=== PATIENT | female | born 1940 | race Caucasian/White ===

== ENCOUNTER 2016-10-25 21:03 | Inpatient (IN) | payer MEDICARE ==
[~2016-10-25] VITALS: Ht 162.5 cm; Wt 120.9 kg
--- NOTE | ~2016-10-25 | O ---
[place], [place] OPERATIVE NOTE NAME: JACKELYN FONTANEZ UNIT #: [id number] ROOM: [facility] DOCTOR: MARKUS DANIELYANCY BIRTHDATE: [birth year] DOS: 10/27/2016 INDICATIONS: The patient is 76 years old who has presented with chief complaint of lower GI bleed with a hemoglobin of 7 to the Emergency Room and continued to have rectal bleed. The patient has been on Xarelto. Xarelto has been placed on hold. Followup H and H's has been ordered. PAST MEDICAL HISTORY: Degenerative joint disease, asthma, essential hypertension, gastroesophageal reflux, CVA, history of benign breast cyst, atrial fibrillation, anemia, TIA. PAST SURGICAL HISTORY: Tonsillectomy, hysterectomy, rotator cuff repair, appendectomy, tubal ligation, tonsillectomy, and retina tear. SOCIAL HISTORY: Nonsmoker, nonalcohol consumer. FAMILY HISTORY: Noncontributory. ALLERGIES: MEPERIDINE, CIPROFLOXACIN, HYDROCODONE, AND PERCOCET. MEDICATIONS: List has been reviewed. The patient has been on omeprazole and iron supplementation. PROCEDURE: Today's procedure part of investigation is colonoscopy. PREMEDICATION: Versed and Diprivan. SCOPE: Olympus forward viewing colonoscope 10L video. REPORT: After putting the patient in the left lateral position and after application of lubricant to rectal pouch and digital examination, scope was introduced. Thereafter, under direct visualization, advanced through the length of colon without difficulty. Base of the cecum explored, appendiceal orifice identified, ileocecal valve was defined. Redundancy and tortuosity of the colon all along was experienced, specifically at sigmoid and splenic and hepatic flexure. Ileocecal valve was photographed. The scope was gradually withdrawn from ascending, transverse, descending colon. The patient extubated after GI reflection of the scope in the rectum, which revealed small hemorrhoids. IMPRESSION: Redundant colon, tortuosity of colon, small hemorrhoid. This could have been bleeding under the effect of the stool trauma in addition to Xarelto being full dose on board. PLAN AND DISCUSSION: We are going to feed her regular diet and clinically reassess. Thank you very much indeed. [place], [place] OPERATIVE NOTE NAME: JACKELYN FONTANEZ UNIT #: [id number] ROOM: 506 DOCTOR: YANCY APARICIO MD BIRTHDATE: [birth year] YANCY APARICIO MD CM:OPRECORD:OPERATIVE NOTE [id number] YANCY APARICIO MD 10/27/16 1629 interface
[~2016-10-25 21:03] MED LIST: ADVAIR 250/501 EA INH; ADVIL200 MG PO; AEROSOL THERAPY1 DEV; ALBUTEROL 3 ML 33 ML INH; ASPIRIN81 M1 PO; ATENOLOL50 M1 PO; ATIVAN0.5 MG PO; BENADRYL ALLERG25 M5 PO; BYSTOLIC5 MG PO; CITALOPRAM10 MG PO; CITALOPRAM20 MG PO; CITALOPRAM40 MG PO; COMBIVENT1 AR1 IH; COZAAR100 MG PO; DELTASONE10 MG PO; DOXYCYCLINE100 M3 PO; FUROSEMIDE20 M1 PO; LASIX40 MG PO; LOSARTAN; OMEPRAZOLE D/R20 MG PO; OMEPRAZOLE DR20 M1 PO; POTASSIUM CHLO20 MEQ PO; POTASSIUM20 MEQ PO; PREDNISONE10 MG PO; PRILOSEC20 M2 PO; SIMVASTATIN40 MG PO; TOPROL XL50 M1 PO; TRAZODONE50 MG PO; TYLENOL325 M1 PO; XARE20MG PO
[2016-10-25 21:09] VITALS: BP 168/78
[2016-10-25] MEDS ORDERED: IRON325 M2 PO (21:16)
[2016-10-25] MEDS ORDERED: OXYGEN NAS (21:17)
[2016-10-25] MEDS ORDERED: IMDUR SA30 MG PO (21:17)
[2016-10-25 21:39] VITALS: BP 126/55
[2016-10-25 22:03] VITALS: BP 126/55
[2016-10-25 22:18] LABS: BASO # 0.1 10*3/uL (0.0-0.1); BASO % 0.5 % (0.0-1.0); EOS # 0.4 10*3/uL (0.0-0.4); EOS % 3.3 % (1.0-4.0); HEMOGLOBIN 7.4 g/dl (12.0-16.0); LYMPH # 1.9 10*3/uL (1.3-4.4); LYMPH % 14.6 % (27.0-41.0); MEAN CELL VOLUME 86.3 fl (81.0-99.0); MEAN CORPUSCULAR HGB 26.6 pg (27.0-31.0); MEAN CORPUSCULAR HGB CONC 30.8 g/dl (33.0-37.0); MEAN PLATELET VOLUME 9.5 fl (9.6-12.3); MONO % 7.2 % (3.0-9.0); NEUT # 9.8 10*3/uL (2.3-7.9); NEUT % 74.1 % (47.0-73.0); PLATELET COUNT AUTOMATED 382 10*3/uL (130-400); RED BLOOD COUNT 2.78 10*6/uL (4.10-5.10); WHITE BLOOD COUNT 13.2 10*3/uL (4.8-10.8)
[2016-10-25 22:28] LABS: INTERNATIONAL NORM RATIO 1.4 (2.0-3.5); PROTHROMBIN TIME 14.8 SECONDS (9.0-12.4)
[2016-10-25 22:36] LABS: ALBUMIN 3.2 gm/dl (3.1-4.5); ALKALINE PHOSPHATASE 81 U/L (45-117); BILIRUBIN, TOTAL 0.7 mg/dl (0.2-1.0); BUN 17 mg/dl (7-24); CARBON DIOXIDE 24 mmol/L (21-32); CHLORIDE 106 mmol/L (98-107); CPK 118 U/L (26-192); EST GLOM FILT AFRICAN AMERICAN > 60 ml/min; GLUCOSE 90 mg/dL (65-99); LDH 262 U/L (84-246); POTASSIUM 3.8 mmol/L (3.5-5.1); SGOT/AST 18 IU/L (3-35); SGPT/ALT 20 U/L (12-78); SODIUM 143 mmol/L (136-145); TOTAL PROTEIN 7.3 gm/dL (6.4-8.2)
[2016-10-25 22:37] LABS: CKMB 1.2 ng/ml (0.5-3.6)
[2016-10-25 22:40] LABS: TROPONIN I < 0.015 ng/ml (<0.045)
[2016-10-25 23:00] VITALS: BP 153/73
[2016-10-26 00:13] VITALS: BP 141/54
[2016-10-26] MEDS ORDERED: LASIX40 MG PO (01:01)
[2016-10-26] MEDS ORDERED: TYLENOL80 MG PO (01:02)
[2016-10-26] MEDS ORDERED: VITAMIN D3400 UNI1 PO (01:03)
[2016-10-26 05:54] LABS: BASO # 0.1 10*3/uL (0.0-0.1); BASO % 0.6 % (0.0-1.0); EOS # 0.4 10*3/uL (0.0-0.4); EOS % 3.1 % (1.0-4.0); HEMATOCRIT 27.9 % (37.0-47.0); HEMOGLOBIN 8.7 g/dl (12.0-16.0); IG # 0.1 10*3/uL (0.0-0.1); LYMPH # 1.9 10*3/uL (1.3-4.4); LYMPH % 15.1 % (27.0-41.0); MEAN CELL VOLUME 86.4 fl (81.0-99.0); MEAN CORPUSCULAR HGB 26.9 pg (27.0-31.0); MEAN CORPUSCULAR HGB CONC 31.2 g/dl (33.0-37.0); MEAN PLATELET VOLUME 9.5 fl (9.6-12.3); MONO % 7.6 % (3.0-9.0); NEUT # 9.1 10*3/uL (2.3-7.9); NEUT % 73.2 % (47.0-73.0); PLATELET COUNT AUTOMATED 393 10*3/uL (130-400); RED BLOOD COUNT 3.23 10*6/uL (4.10-5.10); RED CELL DISTRI WIDTH 14.9 % (0-14.5); WHITE BLOOD COUNT 12.4 10*3/uL (4.8-10.8)
[2016-10-26 06:08] LABS: BUN 15 mg/dl (7-24); CARBON DIOXIDE 24 mmol/L (21-32); CHLORIDE 106 mmol/L (98-107); CHOLESTEROL 120 mg/dL (<200); EST GLOM FILT AFRICAN AMERICAN > 60 ml/min; FREE T4 1.27 ng/dl (0.76-1.46); GLUCOSE 105 mg/dL (65-99); HDL CHOLESTEROL 44 mg/dl (40-60); LDL CHOLESTEROL 62 mg/dL (9-159); POTASSIUM 3.9 mmol/L (3.5-5.1); SODIUM 141 mmol/L (136-145); TRIGLYCERIDES 72 mg/dl (<150); VLDL CHOLESTEROL 14 mg/dL (6-40)
[2016-10-26 06:16] LABS: INTERNATIONAL NORM RATIO 1.2 (2.0-3.5); PROTHROMBIN TIME 12.8 SECONDS (9.0-12.4)
[2016-10-26 06:17] LABS: FOLIC ACID 20.9 ng/mL (>5.38)
[2016-10-26 08:00] VITALS: BP 114/90
[2016-10-26 09:57] VITALS: BP 138/50
[2016-10-26 12:00] VITALS: BP 132/44
[2016-10-26 16:00] VITALS: BP 142/58
[2016-10-26 20:00] VITALS: BP 133/85
[2016-10-27] VITALS (7 sets, daily range): BP systolic 133–170; BP diastolic 47–90
[2016-10-27 06:29] LABS: BASO # 0.1 10*3/uL (0.0-0.1); BASO % 0.5 % (0.0-1.0); EOS # 0.4 10*3/uL (0.0-0.4); HEMATOCRIT 25.8 % (37.0-47.0); HEMOGLOBIN 8.2 g/dl (12.0-16.0); IG # 0.1 10*3/uL (0.0-0.1); LYMPH # 1.5 10*3/uL (1.3-4.4); LYMPH % 13.5 % (27.0-41.0); MEAN CELL VOLUME 86.6 fl (81.0-99.0); MEAN CORPUSCULAR HGB 27.5 pg (27.0-31.0); MEAN CORPUSCULAR HGB CONC 31.8 g/dl (33.0-37.0); MEAN PLATELET VOLUME 9.1 fl (9.6-12.3); MONO # 0.9 10*3/uL (0.1-1.0); MONO % 7.9 % (3.0-9.0); NEUT # 8.1 10*3/uL (2.3-7.9); NEUT % 73.6 % (47.0-73.0); PLATELET COUNT AUTOMATED 328 10*3/uL (130-400); RED BLOOD COUNT 2.98 10*6/uL (4.10-5.10); RED CELL DISTRI WIDTH 15.1 % (0-14.5)
[2016-10-27 06:45] LABS: BUN 9 mg/dl (7-24); CARBON DIOXIDE 26 mmol/L (21-32); CHLORIDE 106 mmol/L (98-107); EST GLOM FILT AFRICAN AMERICAN > 60 ml/min; GLUCOSE 101 mg/dL (65-99); POTASSIUM 3.5 mmol/L (3.5-5.1); SODIUM 142 mmol/L (136-145)
[2016-10-27] MEDS ORDERED: COUMADIN5 M2 PO (16:15)
== END 2016-10-27 19:30 | disposition home or self-care (01) | DRG 377 ==
LOC: ED 21:03 → EDHOLD 23:23 → 5E 23:23
PROVIDERS: Internal Medicine; Internal Medicine Hospice and Palliative Medicine; Physician Assistant
PROC: 30233N1 Transfusion of Nonautologous Red Blood Cells into Peripheral Vein, Percutaneous Approach (ICD-10-PCS; 2016-10-26)
PROC: 0DJD8ZZ Inspection of Lower Intestinal Tract, Via Natural or Artificial Opening Endoscopic (ICD-10-PCS; principal; 2016-10-27)
DX: K92.2 Gastrointestinal hemorrhage, unspecified (principal); I50.33 Acute on chronic diastolic (congestive) heart failure; E44.0 Moderate protein-calorie malnutrition; D68.59 Other primary thrombophilia; I48.2 Chronic atrial fibrillation; Z99.81 Dependence on supplemental oxygen; Z68.42 Body mass index [BMI] 45.0-49.9, adult; I10 Essential (primary) hypertension; E78.5 Hyperlipidemia, unspecified; K64.8 Other hemorrhoids; D64.9 Anemia, unspecified; J45.909 Unspecified asthma, uncomplicated; Z79.01 Long term (current) use of anticoagulants; K21.9 Gastro-esophageal reflux disease without esophagitis; Z86.73 Personal history of transient ischemic attack (TIA), and cerebral infarction without residual deficits; Z88.1 Allergy status to other antibiotic agents; Z88.5 Allergy status to narcotic agent; D72.829 Elevated white blood cell count, unspecified; Z82.41 Family history of sudden cardiac death; M19.90 Unspecified osteoarthritis, unspecified site

== ENCOUNTER → 2018-03-08 | Outpatient (CLI) | payer MEDICARE ==
[~2018-03-08] MED LIST changes: +COUMADIN5 M2 PO; +IMDUR SA30 MG PO; +IRON325 M2 PO; +OXYGEN NAS; +TYLENOL80 MG PO; +VITAMIN D3400 UNI1 PO
== END | disposition home or self-care (01) ==
LOC: RESCLI 08:10
DX: I11.0 Hypertensive heart disease with heart failure (principal); I50.9 Heart failure, unspecified; I25.10 Atherosclerotic heart disease of native coronary artery without angina pectoris; I48.2 Chronic atrial fibrillation; K21.9 Gastro-esophageal reflux disease without esophagitis; E78.5 Hyperlipidemia, unspecified; K59.00 Constipation, unspecified; J45.20 Mild intermittent asthma, uncomplicated; F41.9 Anxiety disorder, unspecified; G47.30 Sleep apnea, unspecified; Z90.710 Acquired absence of both cervix and uterus; Z88.8 Allergy status to other drugs, medicaments and biological substances

== ENCOUNTER 2018-05-16 08:04 | Emergency (ER) | payer MEDICARE ==
[~2018-05-16] VITALS: Wt 117.9 kg
[2018-05-16] MEDS ORDERED: XARE20MG PO (08:17)
[2018-05-16] MEDS ORDERED: CITALOPRAM20 MG PO (08:18)
[2018-05-16] MEDS ORDERED: STOOL SOFTENER240 M2 PO (08:20)
== END 2018-05-16 09:59 | disposition home or self-care (01) ==
LOC: ED 08:04
DX: M25.531 Pain in right wrist (principal); Z88.1 Allergy status to other antibiotic agents; Z88.6 Allergy status to analgesic agent; Z88.8 Allergy status to other drugs, medicaments and biological substances; Z79.899 Other long term (current) drug therapy; Z90.710 Acquired absence of both cervix and uterus

== ENCOUNTER → 2018-05-17 | Outpatient (CLI) | payer MEDICARE ==
[~2018-05-17] MED LIST changes: +STOOL SOFTENER240 M2 PO
== END | disposition home or self-care (01) ==
LOC: RESCLI 04:25
DX: I48.2 Chronic atrial fibrillation (principal); E78.5 Hyperlipidemia, unspecified; I11.0 Hypertensive heart disease with heart failure; I50.9 Heart failure, unspecified; K21.9 Gastro-esophageal reflux disease without esophagitis; F41.9 Anxiety disorder, unspecified; I25.10 Atherosclerotic heart disease of native coronary artery without angina pectoris; K59.00 Constipation, unspecified; G47.30 Sleep apnea, unspecified; J45.20 Mild intermittent asthma, uncomplicated; E66.01 Morbid (severe) obesity due to excess calories; S63.501D Unspecified sprain of right wrist, subsequent encounter; X58.XXXD Exposure to other specified factors, subsequent encounter; Z79.899 Other long term (current) drug therapy; Z88.8 Allergy status to other drugs, medicaments and biological substances

== ENCOUNTER → 2018-08-08 | Outpatient (CLI) | payer MEDICARE ==
[2018-08-08 13:04] LABS: BASO # 0.1 10*3/uL (0.0-0.1); EOS # 0.4 10*3/uL (0.0-0.4); EOS % 5.6 % (1.0-4.0); HEMATOCRIT 44.9 % (37.0-47.0); LYMPH # 1.2 10*3/uL (1.3-4.4); LYMPH % 16.8 % (27.0-41.0); MEAN CELL VOLUME 92.8 fl (81.0-99.0); MEAN CORPUSCULAR HGB CONC 33.4 g/dl (33.0-37.0); MEAN PLATELET VOLUME 9.7 fl (9.6-12.3); MONO # 0.9 10*3/uL (0.1-1.0); MONO % 12.6 % (3.0-9.0); NEUT # 4.5 10*3/uL (2.3-7.9); NEUT % 63.7 % (47.0-73.0); PLATELET COUNT AUTOMATED 264 10*3/uL (130-400); RED BLOOD COUNT 4.84 10*6/uL (4.10-5.10); RED CELL DISTRI WIDTH 14.2 % (0-14.5); WHITE BLOOD COUNT 7.1 10*3/uL (4.8-10.8)
[2018-08-08 13:40] LABS: ALBUMIN 3.5 gm/dl (3.1-4.5); BUN 13 mg/dl (7-24); CHLORIDE 106 mmol/L (98-107); CREATININE 0.81 mg/dL (0.55-1.02); POTASSIUM 3.9 mmol/L (3.5-5.1); SGOT/AST 38 IU/L (3-35); SGPT/ALT 29 U/L (12-78); SODIUM 141 mmol/L (136-145)
[2018-08-08 13:43] LABS: ALKALINE PHOSPHATASE 79 U/L (45-117); TOTAL PROTEIN 8.3 gm/dL (6.4-8.2)
== END | disposition home or self-care (01) ==
LOC: RESCLI 11:19 → LAB 11:19
PROVIDERS: Internal Medicine
DX: J45.20 Mild intermittent asthma, uncomplicated (principal); I11.0 Hypertensive heart disease with heart failure; I50.9 Heart failure, unspecified; I48.2 Chronic atrial fibrillation; E78.5 Hyperlipidemia, unspecified; K21.9 Gastro-esophageal reflux disease without esophagitis; I25.10 Atherosclerotic heart disease of native coronary artery without angina pectoris; K59.00 Constipation, unspecified; F41.9 Anxiety disorder, unspecified; G47.30 Sleep apnea, unspecified; Z79.899 Other long term (current) drug therapy; Z90.49 Acquired absence of other specified parts of digestive tract; Z88.1 Allergy status to other antibiotic agents

== ENCOUNTER → 2018-08-11 | Outpatient (CLI) | payer MEDICARE ==
[2018-08-12 05:09] LABS: TOTAL PROTEIN, SERUM 6.9 g/dL (6.0-8.5)
[2018-08-12 09:12] LABS: IMMUNOGLOBULIN G, QNT 1250 mg/dL (700-1600); IMMUNOGLOBULIN M, QNT 85 mg/dL (26-217)
[2018-08-14 14:10] LABS: A/G RATIO 0.9 (0.7-1.7); ALBUMIN 3.2 g/dL (2.9-4.4); ALPHA-1-GLOBULIN 0.2 g/dL (0.0-0.4); ALPHA-2-GLOBULIN 0.9 g/dL (0.4-1.0); BETA GLOBULIN 1.2 g/dL (0.7-1.3); GAMMA GLOBULIN 1.3 g/dL (0.4-1.8); GLOBULIN, TOTAL 3.7 g/dL (2.2-3.9); M-SPIKE 0.4 g/dL (Not Observed)
== END | disposition home or self-care (01) ==
LOC: RESCLI 04:39
PROVIDERS: Internal Medicine
DX: I48.2 Chronic atrial fibrillation (principal); I11.0 Hypertensive heart disease with heart failure; I50.9 Heart failure, unspecified; J45.20 Mild intermittent asthma, uncomplicated; E78.5 Hyperlipidemia, unspecified; K21.9 Gastro-esophageal reflux disease without esophagitis; I25.10 Atherosclerotic heart disease of native coronary artery without angina pectoris; K59.00 Constipation, unspecified; F41.9 Anxiety disorder, unspecified; G47.30 Sleep apnea, unspecified; Z88.8 Allergy status to other drugs, medicaments and biological substances; Z79.899 Other long term (current) drug therapy

== ENCOUNTER → 2018-09-06 | Outpatient (CLI) | payer MEDICARE | END | disposition home or self-care (01) | LOC: RESCLI 00:26 | DX: I11.0 Hypertensive heart disease with heart failure (principal); I50.9 Heart failure, unspecified; D47.2 Monoclonal gammopathy; R94.5 Abnormal results of liver function studies; I48.2 Chronic atrial fibrillation; J45.20 Mild intermittent asthma, uncomplicated; E78.5 Hyperlipidemia, unspecified; K21.9 Gastro-esophageal reflux disease without esophagitis; I25.10 Atherosclerotic heart disease of native coronary artery without angina pectoris; K59.00 Constipation, unspecified; F41.9 Anxiety disorder, unspecified; F32.1 Major depressive disorder, single episode, moderate; E66.01 Morbid (severe) obesity due to excess calories; Z79.899 Other long term (current) drug therapy; Z88.8 Allergy status to other drugs, medicaments and biological substances ==

== ENCOUNTER → 2018-12-15 | Outpatient (CLI) | payer MEDICARE | END | disposition home or self-care (01) | LOC: RESCLI 01:30 | DX: G47.30 Sleep apnea, unspecified (principal); E78.5 Hyperlipidemia, unspecified; I25.10 Atherosclerotic heart disease of native coronary artery without angina pectoris; K59.00 Constipation, unspecified; F41.9 Anxiety disorder, unspecified; F32.1 Major depressive disorder, single episode, moderate; I48.2 Chronic atrial fibrillation; I11.0 Hypertensive heart disease with heart failure; I50.9 Heart failure, unspecified; K21.9 Gastro-esophageal reflux disease without esophagitis; D47.2 Monoclonal gammopathy; R60.9 Edema, unspecified; N17.9 Acute kidney failure, unspecified; Z79.899 Other long term (current) drug therapy ==

== ENCOUNTER → 2019-01-04 | Outpatient (CLI) | payer MEDICARE ==
[2019-01-04 12:41] LABS: ALBUMIN 3.6 gm/dl (3.1-4.5); ALKALINE PHOSPHATASE 95 U/L (45-117); BUN 25 mg/dl (7-24); CHLORIDE 103 mmol/L (98-107); CREATININE 1.07 mg/dL (0.55-1.02); POTASSIUM 3.6 mmol/L (3.5-5.1); SGOT/AST 16 IU/L (3-35); SGPT/ALT 19 U/L (12-78); SODIUM 139 mmol/L (136-145); TOTAL PROTEIN 8.2 gm/dL (6.4-8.2)
[2019-01-05 16:09] LABS: FREE KAPPA LIGHT CHAINS 27.1 mg/L (3.3-19.4); FREE LAMBDA LIGHT CHAINS 23.8 mg/L (5.7-26.3); KAPPA/LAMBDA RATIO 1.14 (0.26-1.65)
[2019-01-10 15:09] LABS: ALPHA-1-GLOBULIN, URINE 2.2 % (.); ALPHA-2-GLOBULIN, URINE 13.3 % (.); BETA GLOBULIN, URINE 38.1 % (.); GAMMA GLOBULIN, URINE 19.3 % (.); M-SPIKE, % Not Observed % (Not Observed); PROTEIN,TOTAL - URINE RANDOM 6.1 mg/dL (Not Estab.)
== END | disposition home or self-care (01) ==
LOC: LAB 01:34
PROVIDERS: Internal Medicine
DX: I50.9 Heart failure, unspecified (principal); D47.2 Monoclonal gammopathy; R94.5 Abnormal results of liver function studies

== ENCOUNTER → 2019-04-27 | Outpatient (CLI) | payer MEDICARE ==
[2019-04-27 09:33] LABS: ALBUMIN 3.5 gm/dl (3.1-4.5); ALKALINE PHOSPHATASE 80 U/L (45-117); BUN 21 mg/dl (7-24); CHLORIDE 101 mmol/L (98-107); CREATININE 1.04 mg/dL (0.55-1.02); POTASSIUM 3.1 mmol/L (3.5-5.1); SGOT/AST 15 IU/L (3-35); SGPT/ALT 16 U/L (12-78); SODIUM 136 mmol/L (136-145); TOTAL PROTEIN 8.3 gm/dL (6.4-8.2)
[2019-04-28 21:05] LABS: FREE KAPPA LIGHT CHAINS 36.5 mg/L (3.3-19.4); FREE LAMBDA LIGHT CHAINS 27.8 mg/L (5.7-26.3); KAPPA/LAMBDA RATIO 1.31 (0.26-1.65)
[2019-05-01 14:11] LABS: ALBUMIN, URINE 20.9 % (.); ALPHA-1-GLOBULIN, URINE 7.1 % (.); ALPHA-2-GLOBULIN, URINE 26.3 % (.); BETA GLOBULIN, URINE 31.7 % (.); GAMMA GLOBULIN, URINE 13.9 % (.); M-SPIKE, % Not Observed % (Not Observed); PROTEIN,TOTAL - URINE RANDOM 13.5 mg/dL (Not Estab.)
== END | disposition home or self-care (01) ==
LOC: LAB 01:22
PROVIDERS: Internal Medicine
DX: D47.2 Monoclonal gammopathy (principal); I50.9 Heart failure, unspecified; R94.5 Abnormal results of liver function studies

== ENCOUNTER → 2019-05-02 | Outpatient (CLI) | payer MEDICARE | END | disposition home or self-care (01) | LOC: RESCLI 02:08 | DX: Z23 Encounter for immunization (principal); F41.9 Anxiety disorder, unspecified; G47.30 Sleep apnea, unspecified; I10 Essential (primary) hypertension; E78.5 Hyperlipidemia, unspecified; I48.21 Permanent atrial fibrillation; I25.10 Atherosclerotic heart disease of native coronary artery without angina pectoris; I11.0 Hypertensive heart disease with heart failure; I50.9 Heart failure, unspecified; K59.00 Constipation, unspecified; R60.9 Edema, unspecified; K21.9 Gastro-esophageal reflux disease without esophagitis; F32.1 Major depressive disorder, single episode, moderate; E55.9 Vitamin D deficiency, unspecified; D47.2 Monoclonal gammopathy; N17.9 Acute kidney failure, unspecified; E66.01 Morbid (severe) obesity due to excess calories; Z79.899 Other long term (current) drug therapy ==

== ENCOUNTER → 2019-07-03 | Outpatient (CLI) | payer MEDICARE | END | disposition home or self-care (01) | LOC: CT 00:41 | DX: I25.10 Atherosclerotic heart disease of native coronary artery without angina pectoris (principal) ==

== ENCOUNTER → 2019-08-07 | Outpatient (CLI) | payer MEDICARE ==
[2019-08-07 09:54] LABS: BASO # 0.1 10*3/uL (0.0-0.1); BASO % 0.8 % (0.0-1.0); EOS # 0.5 10*3/uL (0.0-0.4); EOS % 6.5 % (1.0-4.0); HEMATOCRIT 38.6 % (37.0-47.0); HEMOGLOBIN 12.4 g/dl (12.0-16.0); LYMPH # 1.6 10*3/uL (1.3-4.4); LYMPH % 20.9 % (27.0-41.0); MEAN CELL VOLUME 95.3 fl (81.0-99.0); MEAN CORPUSCULAR HGB 30.6 pg (27.0-31.0); MEAN CORPUSCULAR HGB CONC 32.1 g/dl (33.0-37.0); MEAN PLATELET VOLUME 9.6 fl (9.6-12.3); MONO # 0.6 10*3/uL (0.1-1.0); MONO % 8.2 % (3.0-9.0); NEUT # 4.8 10*3/uL (2.3-7.9); NEUT % 63.2 % (47.0-73.0); PLATELET COUNT AUTOMATED 243 10*3/uL (130-400); RED BLOOD COUNT 4.05 10*6/uL (4.10-5.10); RED CELL DISTRI WIDTH 14.2 % (0-14.5); WHITE BLOOD COUNT 7.6 10*3/uL (4.8-10.8)
[2019-08-07 10:17] LABS: POTASSIUM 4.6 mmol/L (3.5-5.1)
[2019-08-07 10:25] LABS: ALBUMIN 3.4 gm/dl (3.1-4.5); CREATININE 1.31 mg/dL (0.55-1.02); TOTAL PROTEIN 7.9 gm/dL (6.4-8.2)
== END | disposition home or self-care (01) ==
LOC: LAB 01:51
PROVIDERS: Student in an Organized Health Care Education/Training Program
DX: I10 Essential (primary) hypertension (principal); E78.5 Hyperlipidemia, unspecified; E55.9 Vitamin D deficiency, unspecified; Z79.899 Other long term (current) drug therapy

== ENCOUNTER → 2019-08-15 | Outpatient (CLI) | payer MEDICARE ==
[2019-08-15 10:46] LABS: BILIRUBIN NEGATIVE (NEGATIVE); BLOOD TRACE-INTACT (NEGATIVE); CLARITY CLEAR (CLEAR); COLOR YELLOW (YELLOW); GLUCOSE NEGATIVE (NEGATIVE); KETONE NEGATIVE (NEGATIVE); LEUKO ESTERASE NEGATIVE (NEGATIVE); NITRITE NEGATIVE (NEGATIVE); UROBILINOGEN 0.2 E.U./dl (0.2-1.0)
[2019-08-15 11:06] LABS: BACTERIA TRACE; EPITHELIAL CELLS 0-2
[2019-08-16 08:08] LABS: IMMUNOGLOBULIN G, QNT 1241 mg/dL (700-1600); IMMUNOGLOBULIN M, QNT 76 mg/dL (26-217)
== END | disposition home or self-care (01) ==
LOC: RESCLI 00:33
PROVIDERS: Internal Medicine
DX: Z13.31 Encounter for screening for depression (principal); Z13.39 Encounter for screening examination for other mental health and behavioral disorders; I13.0 Hypertensive heart and chronic kidney disease with heart failure and stage 1 through stage 4 chronic kidney disease, or unspecified chronic kidney disease; N18.3 Chronic kidney disease, stage 3 (moderate); I50.9 Heart failure, unspecified; D47.2 Monoclonal gammopathy; F41.9 Anxiety disorder, unspecified; G47.30 Sleep apnea, unspecified; E78.5 Hyperlipidemia, unspecified; I48.20 Chronic atrial fibrillation, unspecified; I25.10 Atherosclerotic heart disease of native coronary artery without angina pectoris; K59.00 Constipation, unspecified; R60.9 Edema, unspecified; K21.9 Gastro-esophageal reflux disease without esophagitis; F32.1 Major depressive disorder, single episode, moderate; C44.311 Basal cell carcinoma of skin of nose; Z79.899 Other long term (current) drug therapy; Z90.710 Acquired absence of both cervix and uterus; Z90.89 Acquired absence of other organs; Z88.1 Allergy status to other antibiotic agents

== ENCOUNTER → 2019-09-20 | Outpatient (CLI) | payer MEDICARE ==
[2019-09-20 10:39] LABS: CREATININE 1.08 mg/dL (0.55-1.02)
== END | disposition home or self-care (01) ==
LOC: LAB 00:24
PROVIDERS: Student in an Organized Health Care Education/Training Program
DX: I10 Essential (primary) hypertension (principal); E78.5 Hyperlipidemia, unspecified; Z79.899 Other long term (current) drug therapy

== ENCOUNTER → 2019-09-26 | Outpatient (CLI) | payer MEDICARE | END | disposition home or self-care (01) | LOC: RESCLI 01:09 | DX: Z13.31 Encounter for screening for depression (principal); Z13.39 Encounter for screening examination for other mental health and behavioral disorders; I13.0 Hypertensive heart and chronic kidney disease with heart failure and stage 1 through stage 4 chronic kidney disease, or unspecified chronic kidney disease; N18.3 Chronic kidney disease, stage 3 (moderate); I50.9 Heart failure, unspecified; E78.5 Hyperlipidemia, unspecified; G47.30 Sleep apnea, unspecified; D47.2 Monoclonal gammopathy; I48.20 Chronic atrial fibrillation, unspecified; F41.9 Anxiety disorder, unspecified; I25.10 Atherosclerotic heart disease of native coronary artery without angina pectoris; K59.00 Constipation, unspecified; K21.9 Gastro-esophageal reflux disease without esophagitis; F32.1 Major depressive disorder, single episode, moderate; C44.311 Basal cell carcinoma of skin of nose; J18.9 Pneumonia, unspecified organism; J84.112 Idiopathic pulmonary fibrosis; R60.9 Edema, unspecified; Z79.899 Other long term (current) drug therapy; Z88.8 Allergy status to other drugs, medicaments and biological substances; Z90.89 Acquired absence of other organs; Z90.710 Acquired absence of both cervix and uterus ==

== ENCOUNTER → 2019-12-06 | Outpatient (CLI) | payer MEDICARE ==
[2019-12-06 10:55] LABS: ALBUMIN 3.1 gm/dl (3.1-4.5); BILIRUBIN, DIRECT 0.2 mg/dL (0.0-0.2); TOTAL PROTEIN 7.3 gm/dL (6.4-8.2)
== END | disposition home or self-care (01) ==
LOC: LAB 00:48
PROVIDERS: Internal Medicine Critical Care Medicine
DX: Z79.899 Other long term (current) drug therapy (principal)

== ENCOUNTER → 2020-01-31 | Outpatient (CLI) | payer MEDICARE ==
[2020-01-31 10:21] LABS: BASO # 0.1 10*3/uL (0.0-0.1); BASO % 0.8 % (0.0-1.0); EOS # 0.6 10*3/uL (0.0-0.4); EOS % 6.2 % (1.0-4.0); HEMATOCRIT 42.9 % (37.0-47.0); LYMPH # 1.6 10*3/uL (1.3-4.4); LYMPH % 17.5 % (27.0-41.0); MEAN CELL VOLUME 96.8 fl (81.0-99.0); MEAN CORPUSCULAR HGB 31.4 pg (27.0-31.0); MEAN CORPUSCULAR HGB CONC 32.4 g/dl (33.0-37.0); MEAN PLATELET VOLUME 9.5 fl (9.6-12.3); MONO # 0.8 10*3/uL (0.1-1.0); MONO % 8.7 % (3.0-9.0); NEUT # 6.1 10*3/uL (2.3-7.9); NEUT % 66.5 % (47.0-73.0); PLATELET COUNT AUTOMATED 270 10*3/uL (130-400); RED BLOOD COUNT 4.43 10*6/uL (4.10-5.10); RED CELL DISTRI WIDTH 14.9 % (0-14.5); WHITE BLOOD COUNT 9.2 10*3/uL (4.8-10.8)
[2020-01-31 10:52] LABS: ALBUMIN 3.4 gm/dl (3.1-4.5); BUN 16 mg/dl (7-24); CHLORIDE 106 mmol/L (98-107); CREATININE 0.99 mg/dL (0.55-1.02); POTASSIUM 3.8 mmol/L (3.5-5.1); SGOT/AST 17 IU/L (3-35); SGPT/ALT 19 U/L (12-78); SODIUM 138 mmol/L (136-145)
[2020-01-31 10:54] LABS: ALKALINE PHOSPHATASE 83 U/L (45-117); TOTAL PROTEIN 8.1 gm/dL (6.4-8.2)
== END | disposition home or self-care (01) ==
LOC: LAB 00:44
PROVIDERS: Student in an Organized Health Care Education/Training Program
DX: I11.0 Hypertensive heart disease with heart failure (principal); I50.9 Heart failure, unspecified; I25.10 Atherosclerotic heart disease of native coronary artery without angina pectoris; E78.5 Hyperlipidemia, unspecified

== ENCOUNTER → 2020-02-06 | Outpatient (CLI) | payer MEDICARE | END | disposition home or self-care (01) | LOC: RESCLI 00:40 | DX: J84.112 Idiopathic pulmonary fibrosis (principal); I25.10 Atherosclerotic heart disease of native coronary artery without angina pectoris; F41.9 Anxiety disorder, unspecified; G47.30 Sleep apnea, unspecified; K59.00 Constipation, unspecified; I11.0 Hypertensive heart disease with heart failure; I50.9 Heart failure, unspecified; I48.21 Permanent atrial fibrillation; E78.5 Hyperlipidemia, unspecified; K21.9 Gastro-esophageal reflux disease without esophagitis; F32.1 Major depressive disorder, single episode, moderate; R60.9 Edema, unspecified; R11.2 Nausea with vomiting, unspecified; Z13.820 Encounter for screening for osteoporosis; Z79.899 Other long term (current) drug therapy; Z90.710 Acquired absence of both cervix and uterus; Z98.890 Other specified postprocedural states; Z88.8 Allergy status to other drugs, medicaments and biological substances ==

== ENCOUNTER → 2020-05-21 | Outpatient (CLI) | payer MEDICARE ==
[~2020-05-21] MED LIST changes: +ALDACTONE25 M1 PO; +BUMEX2.5 MG/10 PO; +ESBRIET267 MG PO; +VITAMIN D PO
== END | disposition home or self-care (01) ==
LOC: RESCLI 01:15
PROVIDERS: ATTEND Student in an Organized Health Care Education/Training Program
DX: Z23 Encounter for immunization (principal); G47.30 Sleep apnea, unspecified; K59.00 Constipation, unspecified; R11.2 Nausea with vomiting, unspecified; K21.9 Gastro-esophageal reflux disease without esophagitis; R60.9 Edema, unspecified; I48.20 Chronic atrial fibrillation, unspecified; F32.1 Major depressive disorder, single episode, moderate; E78.5 Hyperlipidemia, unspecified; I50.9 Heart failure, unspecified; I25.10 Atherosclerotic heart disease of native coronary artery without angina pectoris; E55.9 Vitamin D deficiency, unspecified; R73.9 Hyperglycemia, unspecified; J84.112 Idiopathic pulmonary fibrosis; Z79.899 Other long term (current) drug therapy

== ENCOUNTER 2020-07-07 22:05 | Inpatient (IN) | payer MEDICARE ==
[~2020-07-07] VITALS: Ht 162.5 cm; Wt 113.4 kg
[~2020-07-07 22:05] MED LIST changes: -ALDACTONE25 M1 PO; -BUMEX2.5 MG/10 PO; -ESBRIET267 MG PO; -VITAMIN D PO
[2020-07-07 22:26] VITALS: BP 162/62
[2020-07-07 22:52] LABS: BASO # 0.1 10*3/uL (0.0-0.1); BASO % 0.8 % (0.0-1.0); EOS # 0.4 10*3/uL (0.0-0.4); EOS % 3.8 % (1.0-4.0); LYMPH # 1.2 10*3/uL (1.3-4.4); LYMPH % 11.1 % (27.0-41.0); MEAN CELL VOLUME 93.3 fl (81.0-99.0); MEAN CORPUSCULAR HGB CONC 32.2 g/dl (33.0-37.0); MEAN PLATELET VOLUME 9.3 fl (9.6-12.3); MONO # 0.8 10*3/uL (0.1-1.0); MONO % 7.3 % (3.0-9.0); NEUT # 8.2 10*3/uL (2.3-7.9); NEUT % 76.5 % (47.0-73.0); PLATELET COUNT AUTOMATED 259 10*3/uL (130-400); RED BLOOD COUNT 3.43 10*6/uL (4.10-5.10); RED CELL DISTRI WIDTH 14.4 % (0-14.5); WHITE BLOOD COUNT 10.7 10*3/uL (4.8-10.8)
[2020-07-07 23:11] LABS: ALBUMIN 3.1 gm/dl (3.1-4.5); ALKALINE PHOSPHATASE 84 U/L (45-117); BUN 37 mg/dl (7-24); CHLORIDE 110 mmol/L (98-107); LIPASE 78 U/L (73-393); POTASSIUM 3.9 mmol/L (3.5-5.1); SGOT/AST 17 IU/L (3-35); SGPT/ALT 23 U/L (12-78); SODIUM 141 mmol/L (136-145); TOTAL PROTEIN 7.4 gm/dL (6.4-8.2)
[2020-07-07 23:12] LABS: TROPONIN I < 0.015 ng/ml (<0.045)
--- NOTE | 2020-07-08 03:54 | NUR ---
PT LAYING ON COT AT THIS TIME. BEDRAILS X2. CALL LIGHT WITHIN REACH. WILL CONTINUE TO MONITOR.
[2020-07-08] MEDS ORDERED: XARE20MG PO (04:24)
[2020-07-08] MEDS ORDERED: BUMEX2.5 MG/10 PO (04:25)
[2020-07-08] MEDS ORDERED: VITAMIN D PO (04:26)
[2020-07-08] MEDS ORDERED: ALDACTONE25 M1 PO (04:27)
[2020-07-08] MEDS ORDERED: ESBRIET267 MG PO (04:28)
--- NOTE | 2020-07-08 04:30 | NUR ---
PT UP TO BEDSIDE COMMODE. URINE SAMPLE OBTAINED AT THIS TIME. PT HELPED BACK TO BED AND POSITIONED FOR COMFORT. WILL CONTINUE TO MONITOR.
[2020-07-08 04:57] VITALS: BP 162/52
[2020-07-08 05:07] LABS: BILIRUBIN Negative (Negative); BLOOD 3+ (Negative); CLARITY Cloudy (Clear); COLOR Yellow (Yellow); GLUCOSE Negative (Negative); KETONE Negative (Negative); LEUKO ESTERASE 1+ (Negative); NITRITE Negative (Negative); SPECIFIC GRAVITY 1.015 (1.001-1.030); UROBILINOGEN 0.2 E.U./dl (0.0-1.0)
[2020-07-08 05:37] LABS: BACTERIA 1+; EPITHELIAL CELLS 16-20; RBC 51-100 rbc/hpf (0-2)
[2020-07-08 06:07] LABS: CREATININE 2.12 mg/dL (0.55-1.02); POTASSIUM 4.4 mmol/L (3.5-5.1)
[2020-07-08 06:10] LABS: BASO # 0.1 10*3/uL (0.0-0.1); BASO % 0.6 % (0.0-1.0); EOS # 0.2 10*3/uL (0.0-0.4); HEMATOCRIT 32.8 % (37.0-47.0); LYMPH # 1.3 10*3/uL (1.3-4.4); LYMPH % 11.9 % (27.0-41.0); MEAN CELL VOLUME 94.3 fl (81.0-99.0); MEAN CORPUSCULAR HGB 29.9 pg (27.0-31.0); MEAN CORPUSCULAR HGB CONC 31.7 g/dl (33.0-37.0); MEAN PLATELET VOLUME 9.9 fl (9.6-12.3); MONO # 0.6 10*3/uL (0.1-1.0); MONO % 5.9 % (3.0-9.0); NEUT # 8.5 10*3/uL (2.3-7.9); NEUT % 79.2 % (47.0-73.0); PLATELET COUNT AUTOMATED 283 10*3/uL (130-400); RED BLOOD COUNT 3.48 10*6/uL (4.10-5.10); RED CELL DISTRI WIDTH 14.4 % (0-14.5); WHITE BLOOD COUNT 10.7 10*3/uL (4.8-10.8)
[2020-07-08 06:14] LABS: THYROID STIM HORMONE (HS) 2.33 uIU/ml (0.358-4.75)
--- NOTE | 2020-07-08 07:44 | NUR ---
DR WEBB HERE TO SEE PT.
[2020-07-08 08:05] LABS: VITAMIN D, 25-HYDROXY 60.8 ng/mL (30-100)
--- NOTE | 2020-07-08 08:40 | NUR ---
RESTING IN NO DISTRESS. CALL LIGHT IN REACH. DECLINED BREAKFAST AT THIS TIME.
[2020-07-08 09:37] VITALS: BP 125/70
--- NOTE | 2020-07-08 09:52 | NUR ---
RESTING IN NO DISTRESS. CALL LIGHT IN REACH. CONTINUES TO DECLINE BREAKFAST.
--- NOTE | 2020-07-08 11:11 | NUR ---
DR WEBB HERE TO SEE PT.
--- NOTE | 2020-07-08 11:26 | NUR ---
FEELING SOB. AUDIBLE WHEEZE NOTED. POX 94% ON ROOM AIR. REQUESTING ALBUTEROL TX THAT SHE DOES [address] NOLAN CALLED. SHE WILL PUT ORDERS IN FOR TX.
--- NOTE | 2020-07-08 12:24 | NUR ---
pt positioned for comfort with lunch tray provided,pt with call light within reach and safety precautions intact,no additional complaints voiced.
--- NOTE | 2020-07-08 14:16 | NUR ---
MEDICATED WITH ZOFRAN ORDERED FOR C/O NAUSEA.
--- NOTE | 2020-07-08 14:52 | NUR ---
NAUSEA BETTER AFTER ZOFRAN. VOICING NO FURTHER COMPLAINTS. DENIES ANY NEEDS AT THIS TIME. CALL LIGHT IN REACH.
--- NOTE | 2020-07-08 16:07 | NUR ---
MEDICATED WITH TYLENOL ORDERED FOR C/O HEADACHE.
[2020-07-08 16:13] VITALS: BP 124/75
[2020-07-08 16:32] LABS: CREATININE 1.93 mg/dL (0.55-1.02); POTASSIUM 4.1 mmol/L (3.5-5.1)
--- NOTE | 2020-07-08 17:16 | NUR ---
PT STATING TO AIDE SHE "HAS NOT BEEN OFFERED ANY FOOD AT ALL" IN TO SPEAK WITH PT AT THIS TIME TO CLARIFY SHE HAD EATEN LUNCH AND WAS ASKED MULTIPLE TIMES IF SHE NEEDED ANYTHING BY MYSELF AND AIDE. SHE EXPRESSED UNDERSTANDING AND IS ORDERING HER DINNER NOW.
[2020-07-08 17:55] VITALS: BP 124/75
--- NOTE | 2020-07-08 17:55 | NUR ---
Time: 1754 A 80 year old FEMALE admitted to 5E under services of IVONE TRAN DO. Pt. arrived via stretcher from ER. Chief complaint: NAUSEA AND VOMITING, UNABLE TO KEEP ANY FOOD/DRINK DOWN FOR PAST 3 DAYS, SHORTNESS OF BREATH, WORSE WITH ACTIVITY, AND DIZZINESS INTERMITTENTLY. CHELA MCDERMOTT
[2020-07-08 20:00] VITALS: BP 127/51
--- NOTE | 2020-07-08 20:47 | NUR ---
24 HR chart check completed.
--- NOTE | 2020-07-08 21:00 | NUR ---
RESTING IN BED. RESPIRATIONS EASY. LUNGS DIMINISHED, CLEAR. PULSE OX 97% 2L. DENIES N/V/D AT PRESENT. CALL LIGHT WITHIN REACH. NO VOICED COMPLAINTS
--- NOTE | 2020-07-08 21:40 | NUR ---
MEDICATED WITH ZOFRAN IV PER PRN ORDER TO ASSIST WITH NAUSEA. WILL MONITOR
--- NOTE | 2020-07-08 22:30 | NUR ---
STATES RELIEF FROM EARLIER ZOFRAN. CALL LIGHT WITHIN REACH. NO FURTHER VOICED COMPLAINTS
[2020-07-09] VITALS: BP 147/66
--- NOTE | 2020-07-09 | NUR ---
SLEEPING. DISTRESS NOTED. RESPIRATIONS EASY. VSS. CALL LIGHT WITHIN REACH
--- NOTE | 2020-07-09 02:51 | NUR ---
REQUESTED AND RECEIVED TYLENOL PER PRN ORDER FOR COMPLAINTS OF HEADACHE RATING A 6. CALL LIGHT WITHIN REACH. WILL MONITOR
--- NOTE | 2020-07-09 03:45 | NUR ---
TYLENOL APPEARS EFFECTIVE. RESTING WITH EYES CLOSED.
--- NOTE | 2020-07-09 06:00 | NUR ---
RESTING WITH NO ACUTE DISTRESS NOTED. RESPIRATIONS EASY. CALL LIGHT WITHIN REACH. NO VOICED COMPLAINTS THIS SHIFT
[2020-07-09 06:36] LABS: BASO # 0.1 10*3/uL (0.0-0.1); BASO % 0.5 % (0.0-1.0); EOS # 0.4 10*3/uL (0.0-0.4); EOS % 3.7 % (1.0-4.0); HEMATOCRIT 31.2 % (37.0-47.0); LYMPH # 1.2 10*3/uL (1.3-4.4); LYMPH % 10.2 % (27.0-41.0); MEAN CELL VOLUME 95.7 fl (81.0-99.0); MEAN CORPUSCULAR HGB 30.1 pg (27.0-31.0); MEAN CORPUSCULAR HGB CONC 31.4 g/dl (33.0-37.0); MEAN PLATELET VOLUME 10.1 fl (9.6-12.3); MONO # 0.9 10*3/uL (0.1-1.0); MONO % 7.9 % (3.0-9.0); NEUT # 8.9 10*3/uL (2.3-7.9); NEUT % 77.4 % (47.0-73.0); PLATELET COUNT AUTOMATED 254 10*3/uL (130-400); RED BLOOD COUNT 3.26 10*6/uL (4.10-5.10); RED CELL DISTRI WIDTH 14.6 % (0-14.5); WHITE BLOOD COUNT 11.5 10*3/uL (4.8-10.8)
[2020-07-09 06:55] LABS: CREATININE 1.92 mg/dL (0.55-1.02); POTASSIUM 4.3 mmol/L (3.5-5.1)
[2020-07-09 07:10] LABS: ACT PARTIAL THROMBO TIME 39.6 SECONDS (20.0-32.1); INTERNATIONAL NORM RATIO 1.4 (2.0-3.5)
[2020-07-09 08:00] VITALS: BP 138/62
[2020-07-09 12:00] VITALS: BP 137/62
--- NOTE | 2020-07-09 15:42 | NUR ---
SARAH-Earlene in to talk to patient. Patient states lives at home with 2 sons. There are 0 steps in the home. Physician: [facility] Home health services: no Patient's level of ADLs: INDEPENDENT Patient has working utilities: DME: O2 concentrator, O2 portable tank, CPAP, nebulizer, walker, cane Follow-up physician's appointment after d/c: Will need scheduled Does patient want to access PORTAL?: yes Discharge plan Pt states that she has two sons residing with her and assisting her as needed. Pt has DME in place. She has never needed VNA services and anticipates not needing VNA at discharge. No further discharge needs at this time. MEG BLANC
[2020-07-09 16:00] VITALS: BP 154/84
[2020-07-09 20:00] VITALS: BP 142/56
--- NOTE | 2020-07-09 20:30 | NUR ---
PATIENT RESTING IN BED. IV FLUIDS INFUSING PER ORDER. NO DISTRESS NOTED. PATIENT ON 2L WHICH SHE STATES SHE OCCASIONALLY WEARS AT HOME AND USUALLY WEARS A CPAP. PATIENT PLEASANT AND COOPERATIVE WITH ASSESSMENT. DENIES ANY PAIN OR NAUSEA VOMITING AT THIS TIME. CALL LIGHT WITHIN REACH, WILL MONITOR
[2020-07-10] VITALS: BP 126/59
--- NOTE | 2020-07-10 02:52 | NUR ---
PATIENT SLEEPING, NO DISTRESS NOTED. BREATHING IS EASY AND REGULAR ON 2L. CALL LIGHT WTIHIN REACH, WILL MONITOR
--- NOTE | 2020-07-10 03:23 | NUR ---
HUMIDIFIED WATER ADDED TO PATIENTS OXYGEN. SHE ALSO STATED AT THIS TIME THAT SHE WEARS 3L OF O2 AT NIGHT. O2 PER PATIENT INCREASED TO 3L.
--- NOTE | 2020-07-10 04:33 | NUR ---
24 HR chart check completed.
[2020-07-10 06:39] LABS: BASO # 0.1 10*3/uL (0.0-0.1); BASO % 0.7 % (0.0-1.0); EOS # 0.5 10*3/uL (0.0-0.4); EOS % 4.8 % (1.0-4.0); HEMATOCRIT 29.6 % (37.0-47.0); LYMPH # 1.4 10*3/uL (1.3-4.4); LYMPH % 12.6 % (27.0-41.0); MEAN CELL VOLUME 95.5 fl (81.0-99.0); MEAN CORPUSCULAR HGB 30.3 pg (27.0-31.0); MEAN CORPUSCULAR HGB CONC 31.8 g/dl (33.0-37.0); MEAN PLATELET VOLUME 9.8 fl (9.6-12.3); MONO # 0.8 10*3/uL (0.1-1.0); MONO % 7.5 % (3.0-9.0); NEUT % 74.1 % (47.0-73.0); PLATELET COUNT AUTOMATED 225 10*3/uL (130-400); RED CELL DISTRI WIDTH 14.6 % (0-14.5); WHITE BLOOD COUNT 10.7 10*3/uL (4.8-10.8)
[2020-07-10 06:42] LABS: CREATININE 1.73 mg/dL (0.55-1.02); POTASSIUM 4.2 mmol/L (3.5-5.1)
[2020-07-10 08:00] VITALS: BP 152/66
[2020-07-10 12:00] VITALS: BP 152/80
--- NOTE | 2020-07-10 15:22 | NUR ---
Met with pt this afternoon. Pt continues to voice that she has no discharge needs. Pt stated that she is wanting to discharge today to home and is waiting to see the doctor.
[2020-07-10 16:00] VITALS: BP 157/74
[2020-07-10 20:00] VITALS: BP 123/60
[2020-07-11] VITALS: BP 154/84
--- NOTE | 2020-07-11 01:52 | NUR ---
CHART CHECK COMPLETE.
[2020-07-11 06:58] LABS: BASO % 0.2 % (0.0-1.0); HEMATOCRIT 29.5 % (37.0-47.0); LYMPH # 0.8 10*3/uL (1.3-4.4); LYMPH % 7.6 % (27.0-41.0); MEAN CELL VOLUME 93.7 fl (81.0-99.0); MEAN CORPUSCULAR HGB 29.5 pg (27.0-31.0); MEAN CORPUSCULAR HGB CONC 31.5 g/dl (33.0-37.0); MEAN PLATELET VOLUME 9.9 fl (9.6-12.3); MONO # 0.6 10*3/uL (0.1-1.0); MONO % 5.1 % (3.0-9.0); NEUT # 9.3 10*3/uL (2.3-7.9); NEUT % 86.6 % (47.0-73.0); PLATELET COUNT AUTOMATED 244 10*3/uL (130-400); RED BLOOD COUNT 3.15 10*6/uL (4.10-5.10); RED CELL DISTRI WIDTH 14.1 % (0-14.5); WHITE BLOOD COUNT 10.8 10*3/uL (4.8-10.8)
[2020-07-11 07:25] LABS: CREATININE 1.73 mg/dL (0.55-1.02); POTASSIUM 4.5 mmol/L (3.5-5.1)
[2020-07-11 08:00] VITALS: BP 155/78
[2020-07-11 12:00] VITALS: BP 154/70
--- NOTE | 2020-07-11 12:00 | NUR ---
TERESA in to talk to pt this AM. Pt is aware that she will be discharging today. Pt confirmed again that she has no further discharge needs.
--- NOTE | 2020-07-11 15:20 | NUR ---
Discharge instructions reviewed with patient/family. Patient receptive and verbalizes understanding. Follow-up care arranged. Written instructions given to patient/family. HE[place]OCK DISCONTINUED. PATIENT TAKEN OFF FLOOR VIA WHEELCHAIR. DEANNA GIBBONS
== END 2020-07-11 15:20 | disposition home or self-care (01) | DRG 444 ==
LOC: ED 22:05 → EDHOLD 07-08 01:27 → 5E 07-08 17:37 → 4E 07-09 19:11
PROVIDERS: Internal Medicine; Student in an Organized Health Care Education/Training Program; ADMIT Internal Medicine; ATTEND Internal Medicine
DX: K80.20 Calculus of gallbladder without cholecystitis without obstruction (principal); N17.0 Acute kidney failure with tubular necrosis; J96.11 Chronic respiratory failure with hypoxia; Z68.41 Body mass index [BMI] 40.0-44.9, adult; I48.20 Chronic atrial fibrillation, unspecified; I70.0 Atherosclerosis of aorta; E86.0 Dehydration; K21.9 Gastro-esophageal reflux disease without esophagitis; M19.90 Unspecified osteoarthritis, unspecified site; J45.909 Unspecified asthma, uncomplicated; R00.1 Bradycardia, unspecified; E87.8 Other disorders of electrolyte and fluid balance, not elsewhere classified; R73.9 Hyperglycemia, unspecified; D64.9 Anemia, unspecified; J84.10 Pulmonary fibrosis, unspecified; I10 Essential (primary) hypertension; E78.5 Hyperlipidemia, unspecified; E66.01 Morbid (severe) obesity due to excess calories; G47.33 Obstructive sleep apnea (adult) (pediatric); Z86.73 Personal history of transient ischemic attack (TIA), and cerebral infarction without residual deficits; Z88.1 Allergy status to other antibiotic agents; Z88.5 Allergy status to narcotic agent; Z90.710 Acquired absence of both cervix and uterus; Z98.51 Tubal ligation status; Z82.49 Family history of ischemic heart disease and other diseases of the circulatory system; Z79.899 Other long term (current) drug therapy; Z79.01 Long term (current) use of anticoagulants; Z99.81 Dependence on supplemental oxygen; Z20.828 Contact with and (suspected) exposure to other viral communicable diseases

== ENCOUNTER → 2020-07-31 | Outpatient (CLI) | payer MEDICARE ==
[~2020-07-31] MED LIST changes: +ALDACTONE25 M1 PO; +BUMEX2.5 MG/10 PO; +ESBRIET267 MG PO; +VITAMIN D PO
== END | disposition home or self-care (01) ==
LOC: RESCLI 00:22
PROVIDERS: ATTEND Internal Medicine
DX: K80.20 Calculus of gallbladder without cholecystitis without obstruction (principal); G47.30 Sleep apnea, unspecified; K59.00 Constipation, unspecified; R11.2 Nausea with vomiting, unspecified; K21.9 Gastro-esophageal reflux disease without esophagitis; R60.9 Edema, unspecified; I48.21 Permanent atrial fibrillation; F32.1 Major depressive disorder, single episode, moderate; E78.5 Hyperlipidemia, unspecified; I11.0 Hypertensive heart disease with heart failure; I50.9 Heart failure, unspecified; I25.10 Atherosclerotic heart disease of native coronary artery without angina pectoris; E55.9 Vitamin D deficiency, unspecified; J84.112 Idiopathic pulmonary fibrosis; J45.20 Mild intermittent asthma, uncomplicated; F41.9 Anxiety disorder, unspecified; Z23 Encounter for immunization; Z79.899 Other long term (current) drug therapy; Z88.8 Allergy status to other drugs, medicaments and biological substances

== ENCOUNTER → 2020-10-09 | Outpatient (CLI) | payer MEDICARE | END | disposition home or self-care (01) | LOC: RESCLI 02:05 | PROVIDERS: ATTEND Internal Medicine Nephrology | DX: I50.9 Heart failure, unspecified (principal); G47.30 Sleep apnea, unspecified; M19.90 Unspecified osteoarthritis, unspecified site; F41.9 Anxiety disorder, unspecified; K21.9 Gastro-esophageal reflux disease without esophagitis; K59.00 Constipation, unspecified; R60.9 Edema, unspecified; I48.0 Paroxysmal atrial fibrillation; E55.9 Vitamin D deficiency, unspecified; J84.112 Idiopathic pulmonary fibrosis; F32.1 Major depressive disorder, single episode, moderate; I25.10 Atherosclerotic heart disease of native coronary artery without angina pectoris; R82.998 Other abnormal findings in urine; N18.32 Chronic kidney disease, stage 3b; Z79.899 Other long term (current) drug therapy; Z98.890 Other specified postprocedural states; Z88.0 Allergy status to penicillin ==

== ENCOUNTER → 2020-10-21 | Outpatient (CLI) | payer MEDICARE ==
[2020-10-21 11:18] LABS: BASO # 0.1 10*3/uL (0.0-0.1); BASO % 0.9 % (0.0-1.0); EOS # 0.7 10*3/uL (0.0-0.4); EOS % 7.4 % (1.0-4.0); LYMPH # 1.2 10*3/uL (1.3-4.4); LYMPH % 12.2 % (27.0-41.0); MEAN CORPUSCULAR HGB 30.3 pg (27.0-31.0); MEAN CORPUSCULAR HGB CONC 30.9 g/dl (33.0-37.0); MEAN PLATELET VOLUME 9.5 fl (9.6-12.3); MONO # 0.7 10*3/uL (0.1-1.0); NEUT # 6.9 10*3/uL (2.3-7.9); NEUT % 71.9 % (47.0-73.0); PLATELET COUNT AUTOMATED 272 10*3/uL (130-400); RED BLOOD COUNT 3.47 10*6/uL (4.10-5.10); RED CELL DISTRI WIDTH 13.6 % (0-14.5); WHITE BLOOD COUNT 9.7 10*3/uL (4.8-10.8)
[2020-10-21 11:19] LABS: BILIRUBIN Negative (Negative); BLOOD 3+ (Negative); CLARITY Clear (Clear); COLOR Yellow (Yellow); GLUCOSE Negative (Negative); KETONE Negative (Negative); LEUKO ESTERASE Trace (Negative); NITRITE Negative (Negative); UROBILINOGEN 0.2 E.U./dl (0.0-1.0)
[2020-10-21 11:50] LABS: ALBUMIN 3.2 gm/dl (3.1-4.5); POTASSIUM 4.6 mmol/L (3.5-5.1)
[2020-10-21 11:53] LABS: CREATININE 1.87 mg/dL (0.55-1.02); TOTAL PROTEIN 7.9 gm/dL (6.4-8.2)
[2020-10-21 12:53] LABS: BACTERIA 1+; RBC TNTC rbc/hpf (0-2)
== END | disposition home or self-care (01) ==
LOC: LAB 00:14
PROVIDERS: Student in an Organized Health Care Education/Training Program; ATTEND Internal Medicine
DX: I48.20 Chronic atrial fibrillation, unspecified (principal); R82.998 Other abnormal findings in urine

== ENCOUNTER → 2020-12-17 | Outpatient (CLI) | payer MEDICARE | END | disposition home or self-care (01) | LOC: RESCLI 01:21 | PROVIDERS: ATTEND Student in an Organized Health Care Education/Training Program | DX: I50.9 Heart failure, unspecified (principal); G47.30 Sleep apnea, unspecified; M19.90 Unspecified osteoarthritis, unspecified site; F41.9 Anxiety disorder, unspecified; K59.00 Constipation, unspecified; R60.9 Edema, unspecified; E55.9 Vitamin D deficiency, unspecified; J84.112 Idiopathic pulmonary fibrosis; K21.9 Gastro-esophageal reflux disease without esophagitis; I48.21 Permanent atrial fibrillation; F32.1 Major depressive disorder, single episode, moderate; E78.5 Hyperlipidemia, unspecified; I25.10 Atherosclerotic heart disease of native coronary artery without angina pectoris; Z79.899 Other long term (current) drug therapy; Z98.890 Other specified postprocedural states; Z90.710 Acquired absence of both cervix and uterus; Z88.8 Allergy status to other drugs, medicaments and biological substances ==

== ENCOUNTER → 2021-03-27 | Outpatient (CLI) | payer MEDICARE | END | disposition home or self-care (01) | LOC: RESCLI 02:45 | PROVIDERS: ATTEND Internal Medicine | DX: G47.30 Sleep apnea, unspecified (principal); M19.90 Unspecified osteoarthritis, unspecified site; F41.9 Anxiety disorder, unspecified; K59.00 Constipation, unspecified; E55.9 Vitamin D deficiency, unspecified; J84.112 Idiopathic pulmonary fibrosis; I50.9 Heart failure, unspecified; I48.20 Chronic atrial fibrillation, unspecified; K21.9 Gastro-esophageal reflux disease without esophagitis; I25.10 Atherosclerotic heart disease of native coronary artery without angina pectoris; R60.9 Edema, unspecified; F32.1 Major depressive disorder, single episode, moderate; E78.5 Hyperlipidemia, unspecified; Z88.8 Allergy status to other drugs, medicaments and biological substances; Z98.890 Other specified postprocedural states; Z90.710 Acquired absence of both cervix and uterus; Z79.899 Other long term (current) drug therapy ==

== ENCOUNTER → 2021-06-19 | Outpatient (CLI) | payer MEDICARE ==
[2021-06-19 14:30] LABS: BASO # 0.1 10*3/uL (0.0-0.1); BASO % 0.9 % (0.0-1.0); EOS # 1.1 10*3/uL (0.0-0.4); HEMATOCRIT 33.1 % (37.0-47.0); LYMPH # 1.3 10*3/uL (1.3-4.4); LYMPH % 13.4 % (27.0-41.0); MEAN CELL VOLUME 94.8 fl (81.0-99.0); MEAN CORPUSCULAR HGB 30.7 pg (27.0-31.0); MEAN CORPUSCULAR HGB CONC 32.3 g/dl (33.0-37.0); MEAN PLATELET VOLUME 9.3 fl (9.6-12.3); MONO # 0.8 10*3/uL (0.1-1.0); MONO % 7.6 % (3.0-9.0); NEUT # 6.6 10*3/uL (2.3-7.9); NEUT % 66.6 % (47.0-73.0); PLATELET COUNT AUTOMATED 274 10*3/uL (130-400); RED BLOOD COUNT 3.49 10*6/uL (4.10-5.10); RED CELL DISTRI WIDTH 13.9 % (0-14.5); WHITE BLOOD COUNT 9.8 10*3/uL (4.8-10.8)
[2021-06-19 14:45] LABS: CREATININE 1.5 mg/dL (0.55-1.02); POTASSIUM 3.8 mmol/L (3.5-5.1); TOTAL PROTEIN 7.9 gm/dL (6.4-8.2)
== END | disposition home or self-care (01) ==
LOC: RESCLI 00:34
PROVIDERS: Internal Medicine; ATTEND Internal Medicine
DX: I11.0 Hypertensive heart disease with heart failure (principal); I50.9 Heart failure, unspecified; G47.30 Sleep apnea, unspecified; M19.90 Unspecified osteoarthritis, unspecified site; F41.9 Anxiety disorder, unspecified; K59.00 Constipation, unspecified; Z13.820 Encounter for screening for osteoporosis; E55.9 Vitamin D deficiency, unspecified; J84.112 Idiopathic pulmonary fibrosis; E78.5 Hyperlipidemia, unspecified; K21.9 Gastro-esophageal reflux disease without esophagitis; R60.9 Edema, unspecified; I48.21 Permanent atrial fibrillation; F32.1 Major depressive disorder, single episode, moderate; I25.10 Atherosclerotic heart disease of native coronary artery without angina pectoris; H04.129 Dry eye syndrome of unspecified lacrimal gland; Z88.1 Allergy status to other antibiotic agents; Z90.710 Acquired absence of both cervix and uterus; Z98.890 Other specified postprocedural states; Z79.899 Other long term (current) drug therapy

== ENCOUNTER → 2021-10-29 | Outpatient (CLI) | payer MEDICARE ==
[~2021-10-29] MED LIST changes: -ALBUTEROL 3 ML 33 ML INH; +HYDRALAZINE10 MG PO; +LIPITOR40 MG PO; +VIBRAMYCIN HYC100 MG PO; +Ventolin 02.5 MG/3 M INH; +XARE15TA PO; +ZITHROMAX250 MG PO
[2021-10-29 16:36] LABS: CREATININE 1.18 mg/dL (0.55-1.02); POTASSIUM 3.5 mmol/L (3.5-5.1)
== END | disposition home or self-care (01) ==
LOC: LAB 15:57
PROVIDERS: ATTEND Internal Medicine Cardiovascular Disease
DX: I50.22 Chronic systolic (congestive) heart failure (principal)

== ENCOUNTER → 2021-11-20 | Outpatient (CLI) | payer MEDICARE ==
[2021-11-20 15:37] LABS: BASO # 0.1 10*3/uL (0.0-0.1); BASO % 0.9 % (0.0-1.0); EOS # 0.6 10*3/uL (0.0-0.4); EOS % 5.8 % (1.0-4.0); HEMATOCRIT 30.6 % (37.0-47.0); LYMPH # 1.3 10*3/uL (1.3-4.4); LYMPH % 12.7 % (27.0-41.0); MEAN CORPUSCULAR HGB 30.1 pg (27.0-31.0); MEAN CORPUSCULAR HGB CONC 31.7 g/dl (33.0-37.0); MEAN PLATELET VOLUME 9.8 fl (9.6-12.3); MONO # 0.7 10*3/uL (0.1-1.0); MONO % 7.5 % (3.0-9.0); NEUT # 7.1 10*3/uL (2.3-7.9); NEUT % 72.6 % (47.0-73.0); PLATELET COUNT AUTOMATED 292 10*3/uL (130-400); RED BLOOD COUNT 3.22 10*6/uL (4.10-5.10); RED CELL DISTRI WIDTH 15.2 % (0-14.5); WHITE BLOOD COUNT 9.8 10*3/uL (4.8-10.8)
[2021-11-21 04:06] LABS: TOTAL PROTEIN, SERUM 6.9 g/dL (6.0-8.5)
[2021-11-23 14:08] LABS: A/G RATIO 0.8 (0.7-1.7); ALBUMIN 3.1 g/dL (2.9-4.4); ALPHA-1-GLOBULIN 0.3 g/dL (0.0-0.4); ALPHA-2-GLOBULIN 0.9 g/dL (0.4-1.0); BETA GLOBULIN 1.3 g/dL (0.7-1.3); GAMMA GLOBULIN 1.3 g/dL (0.4-1.8); GLOBULIN, TOTAL 3.8 g/dL (2.2-3.9); M-SPIKE Not Observed g/dL (Not Observed)
== END | disposition home or self-care (01) ==
LOC: RESCLI 01:18
PROVIDERS: Internal Medicine; ATTEND Internal Medicine
DX: D64.9 Anemia, unspecified (principal); I13.0 Hypertensive heart and chronic kidney disease with heart failure and stage 1 through stage 4 chronic kidney disease, or unspecified chronic kidney disease; I50.20 Unspecified systolic (congestive) heart failure; N18.32 Chronic kidney disease, stage 3b; M19.90 Unspecified osteoarthritis, unspecified site; G47.30 Sleep apnea, unspecified; F41.9 Anxiety disorder, unspecified; K59.00 Constipation, unspecified; E55.9 Vitamin D deficiency, unspecified; J84.112 Idiopathic pulmonary fibrosis; I25.10 Atherosclerotic heart disease of native coronary artery without angina pectoris; I48.21 Permanent atrial fibrillation; H04.129 Dry eye syndrome of unspecified lacrimal gland; E78.5 Hyperlipidemia, unspecified; K21.9 Gastro-esophageal reflux disease without esophagitis; Z88.1 Allergy status to other antibiotic agents; Z79.01 Long term (current) use of anticoagulants; Z79.899 Other long term (current) drug therapy

== ENCOUNTER → 2022-02-15 | Outpatient (CLI) | payer MEDICARE ==
[~2022-02-15] MED LIST changes: +BUMETANIDE1 MG PO; +CEFUROXIME AXE500 MG PO; +ENTRESTO 24 MG1 EACH PO; +Hydralazine Hyd25 MG PO; +XARELTO15 M1 PO
== END | disposition home or self-care (01) ==
LOC: RESCLI 04:24
PROVIDERS: ATTEND Internal Medicine
DX: I11.0 Hypertensive heart disease with heart failure (principal); J18.9 Pneumonia, unspecified organism; G47.30 Sleep apnea, unspecified; M19.90 Unspecified osteoarthritis, unspecified site; K59.00 Constipation, unspecified; E55.9 Vitamin D deficiency, unspecified; J84.112 Idiopathic pulmonary fibrosis; H04.129 Dry eye syndrome of unspecified lacrimal gland; F41.9 Anxiety disorder, unspecified; I50.20 Unspecified systolic (congestive) heart failure; I25.10 Atherosclerotic heart disease of native coronary artery without angina pectoris; K21.9 Gastro-esophageal reflux disease without esophagitis; E78.5 Hyperlipidemia, unspecified; I50.9 Heart failure, unspecified; Z88.8 Allergy status to other drugs, medicaments and biological substances; Z90.710 Acquired absence of both cervix and uterus; Z79.01 Long term (current) use of anticoagulants; Z79.899 Other long term (current) drug therapy

== ENCOUNTER → 2022-04-08 | Outpatient (CLI) | payer MEDICARE ==
[2022-04-08 11:32] LABS: IRON 70 ug/dL (50-170)
[2022-04-08 14:07] LABS: FERRITIN 94.7 ng/mL (10.0-291.0)
[2022-04-09 12:07] LABS: CREATININE,URINE 38.2 mg/dL (Not Estab.)
== END | disposition home or self-care (01) ==
LOC: LAB 00:02
PROVIDERS: ATTEND Internal Medicine Nephrology
DX: E83.9 Disorder of mineral metabolism, unspecified (principal); D64.9 Anemia, unspecified; R80.8 Other proteinuria

== ENCOUNTER → 2022-04-15 | Outpatient (CLI) | payer MEDICARE | END | disposition home or self-care (01) | LOC: RESCLI 08:18 | PROVIDERS: ATTEND Student in an Organized Health Care Education/Training Program | DX: I11.0 Hypertensive heart disease with heart failure (principal); I25.10 Atherosclerotic heart disease of native coronary artery without angina pectoris; G47.30 Sleep apnea, unspecified; M43.6 Torticollis; M19.90 Unspecified osteoarthritis, unspecified site; K59.00 Constipation, unspecified; E55.9 Vitamin D deficiency, unspecified; J84.112 Idiopathic pulmonary fibrosis; I50.20 Unspecified systolic (congestive) heart failure; F41.9 Anxiety disorder, unspecified; I48.21 Permanent atrial fibrillation; E78.5 Hyperlipidemia, unspecified; K21.9 Gastro-esophageal reflux disease without esophagitis; Z90.710 Acquired absence of both cervix and uterus; Z88.8 Allergy status to other drugs, medicaments and biological substances; Z79.899 Other long term (current) drug therapy; Z79.01 Long term (current) use of anticoagulants ==

== ENCOUNTER → 2022-05-31 | Outpatient (CLI) | payer MEDICARE | END | disposition home or self-care (01) | LOC: RESCLI 13:29 | PROVIDERS: ATTEND Internal Medicine | DX: I11.0 Hypertensive heart disease with heart failure (principal); I50.20 Unspecified systolic (congestive) heart failure; K21.9 Gastro-esophageal reflux disease without esophagitis; E78.5 Hyperlipidemia, unspecified; F41.9 Anxiety disorder, unspecified; J84.112 Idiopathic pulmonary fibrosis; E55.9 Vitamin D deficiency, unspecified; K59.00 Constipation, unspecified; M19.90 Unspecified osteoarthritis, unspecified site; G47.30 Sleep apnea, unspecified; M43.6 Torticollis; R23.3 Spontaneous ecchymoses; Z88.1 Allergy status to other antibiotic agents; Z82.49 Family history of ischemic heart disease and other diseases of the circulatory system; Z90.710 Acquired absence of both cervix and uterus; Z98.890 Other specified postprocedural states; Z79.01 Long term (current) use of anticoagulants; Z79.899 Other long term (current) drug therapy ==

== ENCOUNTER → 2022-09-14 | Outpatient (CLI) | payer MEDICARE | END | disposition home or self-care (01) | LOC: RESCLI 02:00 | PROVIDERS: ATTEND Internal Medicine | DX: I11.0 Hypertensive heart disease with heart failure (principal); I50.20 Unspecified systolic (congestive) heart failure; I25.10 Atherosclerotic heart disease of native coronary artery without angina pectoris; F41.9 Anxiety disorder, unspecified; K21.9 Gastro-esophageal reflux disease without esophagitis; M19.90 Unspecified osteoarthritis, unspecified site; E78.5 Hyperlipidemia, unspecified; J45.909 Unspecified asthma, uncomplicated; Z86.73 Personal history of transient ischemic attack (TIA), and cerebral infarction without residual deficits; J84.10 Pulmonary fibrosis, unspecified; Z98.890 Other specified postprocedural states; Z90.710 Acquired absence of both cervix and uterus; Z98.49 Cataract extraction status, unspecified eye; Z82.49 Family history of ischemic heart disease and other diseases of the circulatory system; Z79.899 Other long term (current) drug therapy; Z88.1 Allergy status to other antibiotic agents ==

== ENCOUNTER → 2023-09-15 | Outpatient (CLI) | payer MEDICARE ==
[2023-09-15 17:38] LABS: BASO # 0.1 10*3/uL (0.0-0.1); BASO % 0.9 % (0.0-1.0); EOS # 0.7 10*3/uL (0.0-0.4); HEMATOCRIT 34.3 % (37.0-47.0); LYMPH # 1.5 10*3/uL (1.3-4.4); LYMPH % 17.2 % (27.0-41.0); MEAN CELL VOLUME 97.7 fl (81.0-99.0); MEAN CORPUSCULAR HGB 30.5 pg (27.0-31.0); MEAN CORPUSCULAR HGB CONC 31.2 g/dl (33.0-37.0); MEAN PLATELET VOLUME 9.5 fl (9.6-12.3); MONO # 0.7 10*3/uL (0.1-1.0); MONO % 7.5 % (3.0-9.0); NEUT # 5.8 10*3/uL (2.3-7.9); NEUT % 66.2 % (47.0-73.0); PLATELET COUNT AUTOMATED 236 10*3/uL (130-400); RED BLOOD COUNT 3.51 10*6/uL (4.10-5.10); RED CELL DISTRI WIDTH 13.8 % (0-14.5); WHITE BLOOD COUNT 8.8 10*3/uL (4.8-10.8)
[2023-09-15 18:07] LABS: FREE T4 1.16 ng/dl (0.89-1.76); POTASSIUM 3.4 mmol/L (3.4-5.1); TOTAL PROTEIN 7.6 gm/dL (6.0-8.0)
== END | disposition home or self-care (01) ==
LOC: RESCLI 16:26
PROVIDERS: ATTEND Internal Medicine
DX: J84.112 Idiopathic pulmonary fibrosis (principal); I11.0 Hypertensive heart disease with heart failure; I50.20 Unspecified systolic (congestive) heart failure; K59.00 Constipation, unspecified; K21.9 Gastro-esophageal reflux disease without esophagitis; F41.9 Anxiety disorder, unspecified; E55.9 Vitamin D deficiency, unspecified; M19.90 Unspecified osteoarthritis, unspecified site; G47.30 Sleep apnea, unspecified; E78.5 Hyperlipidemia, unspecified; I25.10 Atherosclerotic heart disease of native coronary artery without angina pectoris; R53.83 Other fatigue; Z98.890 Other specified postprocedural states; Z82.49 Family history of ischemic heart disease and other diseases of the circulatory system; Z88.8 Allergy status to other drugs, medicaments and biological substances; Z79.899 Other long term (current) drug therapy

== ENCOUNTER → 2024-03-05 | Outpatient (CLI) | payer MEDICARE | END | disposition home or self-care (01) | LOC: RESCLI 02:14 | PROVIDERS: ATTEND Student in an Organized Health Care Education/Training Program | DX: I48.20 Chronic atrial fibrillation, unspecified (principal); F41.9 Anxiety disorder, unspecified; E78.5 Hyperlipidemia, unspecified; K21.9 Gastro-esophageal reflux disease without esophagitis; K59.00 Constipation, unspecified; G47.30 Sleep apnea, unspecified; E55.9 Vitamin D deficiency, unspecified; J84.112 Idiopathic pulmonary fibrosis; I50.20 Unspecified systolic (congestive) heart failure; I11.0 Hypertensive heart disease with heart failure; M19.90 Unspecified osteoarthritis, unspecified site; L30.8 Other specified dermatitis; R19.7 Diarrhea, unspecified; Z98.890 Other specified postprocedural states; Z88.8 Allergy status to other drugs, medicaments and biological substances; Z79.899 Other long term (current) drug therapy ==

== ENCOUNTER → 2024-11-09 | Outpatient (CLI) | payer MEDICARE | END | disposition home or self-care (01) | LOC: ORTHO 01:14 | PROVIDERS: ATTEND Orthopaedic Surgery | DX: M19.012 Primary osteoarthritis, left shoulder (principal); M25.512 Pain in left shoulder ==